=== PATIENT | female | born 2000 | race Caucasian/White ===

== ENCOUNTER 2020-04-05 16:59 | Emergency (ER) | payer OTHER ==
[~2020-04-05] VITALS: Ht 172.7 cm; Wt 77.1 kg
[2020-04-05] MEDS ORDERED: Motrin,Rufen800 MG PO (20:10)
[2020-04-05] MEDS ORDERED: CYCLOBENZAPRINE5 M3 PO (20:10)
== END 2020-04-05 20:25 | disposition home or self-care (01) ==
LOC: ED 16:59
DX: S39.012A Strain of muscle, fascia and tendon of lower back, initial encounter (principal); S29.012A Strain of muscle and tendon of back wall of thorax, initial encounter; S16.1XXA Strain of muscle, fascia and tendon at neck level, initial encounter; V89.2XXA Person injured in unspecified motor-vehicle accident, traffic, initial encounter; Y93.89 Activity, other specified; Y92.89 Other specified places as the place of occurrence of the external cause; Y99.8 Other external cause status